=== PATIENT | male | born 1995 | race Caucasian/White ===

== ENCOUNTER 2019-03-20 10:54 | Emergency (ER) | payer OTHER ==
--- NOTE | 2019-03-20 11:14 | ED ---
HPI Febrile Illness - HPI Summary HPI Summary: This patient is a 23 year old male presenting to [facility] with a chief complaint of fever since 5 days ago. He reports rash, n/v, chills, and diaphoresis. He says the rash has been moving around to different body parts. The patient denies ear pain ,throat pain, and diarrhea. The patient states he has had 4-5 tick bites over the last year but states a test for lyme came back negative yesterday. He states the rash is not puritic. - History of Current Complaint Chief Complaint: EDFever Time Seen by Provider: 03/20/19 11:07 Hx Obtained From: Patient Onset/Duration: Started Days Ago Pain Intensity: 0 Pain Scale Used: 0-10 Numeric Associated Signs and Symptoms: Diaphoresis - Allergy/Home Medications Allergies/Adverse Reactions: Allergies Allergy/AdvReac Type Severity Reaction Status Date / Time MS Penicillin V Allergy Intermediate Rash Verified 07/25/15 12:40 [From Penicil VK] PMH/Surg Hx/FS Hx/Imm Hx Respiratory History: Reports: Hx Asthma - seasonl - Surgical History Surgery Procedure, Year, and Place: t & a, ear tubes as a child Infectious Disease History: No Infectious Disease History: Denies: Hx Clostridium Difficile, Hx Hepatitis, Hx Human Immunodeficiency Virus (HIV), Hx of Known/Suspected MRSA, Hx Tuberculosis, Hx Known/Suspected VRE , Hx Known/Suspected VRSA, History Other Infectious Disease, Traveled Outside the in Last 30 Days - Social History Alcohol Use: Rare Substance Use Type: Reports: None Smoking Status (MU): Never Smoked Tobacco Amount Used/How Often: daily/used daily Have You Smoked in the Last Year: - pt chew tobacco Review of Systems Positive: Fever, Chills, Skin Diaphoresis Negative: Sore Throat, Ear Ache Positive: Vomiting, Nausea Positive: Rash All Other Systems Reviewed And Are Negative: Yes Physical Exam - Summary Physical Exam Summary: Appearance: Well appearing, no pain distress Skin: warm, dry, reflects adequate perfusion. Rash papular erythmatous on the left arm. Head/face: normal Eyes: EOMI, YOVANI ENT: normal Neck: supple, non-tender Respiratory: CTA, breath sounds present Cardiovascular: RRR, pulses symmetrical Abdomen: non-tender, soft Musculoskeletal: normal, strength/ROM intact Neuro: normal, sensory motor intact, A&Ox3 Triage Information Reviewed: Yes Vital Signs On Initial Exam: Initial Vitals Temp Pulse Resp BP Pulse Ox 99.6 F 95 20 118/79 97 03/20/19 10:56 03/20/19 10:56 03/20/19 10:56 03/20/19 10:56 03/20/19 10:56 Vital Signs Reviewed: Yes Diagnostics - Vital Signs Vital Signs Temp Pulse Resp BP Pulse Ox 03/20/19 10:56 99.6 F 95 20 118/79 97 - Laboratory Result Diagrams: 03/20/19 12:04 03/20/19 12:04 Lab Statement: Any lab studies that have been ordered have been reviewed, and results considered in the medical decision making process. - Radiology CXR Radiology Interpretation Completed By: Radiologist Summary of Radiographic Findings: No radiographic evidence of cardiopulmonary disease. ED Provider has reviewed this report. Course/Dx - Course Course Of Treatment: This patient is a 23 year old male presenting to [facility] with a chief complaint of fever since 5 days ago. He reports rash, n/v, chills, and diaphoresis. Mononucleoisis test was positive. A plan for discharge was discussed with the patient and he was agreeable with this plan. - Febrile Illness Differential Diagnoses: Other: - fever/allergic reaction - Diagnoses Provider Diagnoses: Infectious mononucleosis Discharge - Sign-Out/Discharge Documenting (check all that apply): Patient Departure - Discharge Patient Received Moderate/Deep Sedation with Procedure: No - Discharge Plan Condition: Stable Disposition: HOME Prescriptions: predniSONE TAB* [Deltasone TAB*] 50 mg PO ONCE #5 tab Patient Education Materials: Mononucleosis (ED) Referrals: [facility] [Outside] - 3 Days Additional Instructions: Follow up with your primary care physician in 3 days. No contact sports. No exercise. No lifting weights. - Billing Disposition and Condition Condition: STABLE Disposition: Home - Attestation Statements Document Initiated by Scribe: Yes Documenting Scribe: Sukumar Villafana Provider For Whom Misha is Documenting (Include Credential): Roel Francis MD Scribe Attestation: Sukumar Soni, scribed for Roel Francis MD on 03/20/19 at 1356. Scribe Documentation Reviewed: Yes Provider Attestation: The documentation as recorded by the Sukumar herring accurately reflects the service I personally performed and the decisions made by me, Roel Francis MD Status of Scribe Document: Viewed
[2019-03-20 12:17] LABS: Hematocrit 47 % (42-52); Mean Corpuscular HGB Conc 34 g/dL (31-36); Mean Corpuscular Hemoglobin 30 pg (27-31); Mean Corpuscular Volume 89 fL (80-94); Mean Platelet Volume 8.3 fL (7.4-10.4); Platelet Count 124 10^3/uL (150-450); Red Blood Count 5.25 10^6 /uL (4.18-5.48); Red Cell Distribution Width 13 % (10-15); White Blood Count 6.9 10^3/uL (3.5-10.8)
[2019-03-20 12:25] LABS: Activated Partial Thrombo Time 36.5 seconds (26.0-38.0); INR 1.12 (0.82-1.09)
[2019-03-20 12:43] LABS: Albumin 3.8 g/dL (3.2-5.2); Calcium 9.2 mg/dL (8.6-10.3); Potassium 4.2 mmol/L (3.5-5.0); Total Bilirubin 0.8 mg/dL (0.2-1.0)
[2019-03-20 12:49] LABS: Albumin/Globulin Ratio 1.2 (1-3); BUN/Creatinine Ratio 9.7 (8-20); EGFR African American 109.3 (>60); EGFR Non-African American 90.3 (>60); Globulin 3.1 g/dL (2-4); Total Protein 6.9 g/dL (6.4-8.9)
[2019-03-20 12:54] LABS: ABS Eosinophils 0.1 10^3/ul (0-0.6); ABS Lymphocytes 4.6 10^3/ul (1.0-4.8); ABS Monocytes 0.9 10^3/ul (0-0.8); ABS Neutrophils 1.4 10^3/ul (1.5-7.7); Lymphocyte % 66.5 %; Nucleated Red Blood Cells % 0.3
[2019-03-20 13:51] VITALS: BP 121/77
== END 2019-03-20 13:49 | disposition home or self-care (01) ==
LOC: ED 10:54
DX: B27.90 Infectious mononucleosis, unspecified without complication (principal); J45.909 Unspecified asthma, uncomplicated; Z88.0 Allergy status to penicillin; F17.290 Nicotine dependence, other tobacco product, uncomplicated
CPT/HCPCS: 36415; 71046; 80053; 83605; 85025; 85060; 85610; 85730; 86308; 87040; 99282